=== PATIENT | female | born 1955 | race Caucasian/White ===

== ENCOUNTER 2016-10-18 07:15 | Inpatient (IN) | payer MEDICAID, OTHER ==
--- NOTE | 2016-10-18 07:49 | ED PDOC ---
HPI: General Adult Time Seen by Provider: 10/18/16 07:29 Chief Complaint (Nursing): Palpitations Chief Complaint (Provider): palpitations History Per: Patient History/Exam Limitations: no limitations Additional Complaint(s): 61yo female w/ Hx orthostatic hypotension states that she gets palpitations whenever she urinates or passes bowel movements, ongoing for the past week. Reports hematuria but denies dysuria. States she also feels "off-balance" generally. Also reports an episode of chest pain, which occurred several days ago and was associated palpitations. Also reports mild shortness of breath. Admits to poor appetite and poor diet. PMD: Rosa Elena Carlton Past Medical History Reviewed: Historical Data, Nursing Documentation, Vital Signs Vital Signs: Last Vital Signs Temp 98 F 10/18/16 11:51 Pulse 99 H 10/18/16 11:51 Resp 18 10/18/16 11:51 BP 120/72 10/18/16 11:51 Pulse Ox 100 10/18/16 08:05 - Medical History PMH: Anemia (Pernicious), Asthma, COPD, Diabetes, Deep Vein Thrombosis, Emphysema, Gastrointestinal Ulcer, Hiatal Hernia, Hyperlipidemia, Obstructive Bowel, Pneumonia Denies: Chronic Kidney Disease Other PMH: orthostatic hypotension - Surgical History Surgical History: Endoscopy (with Gastric Esophageal cauterization) - Family History Family History: States: Unknown Family Hx - Home Medications Home Medications: Ambulatory Orders Medication Instructions Recorded No Known Home Med 04/18/16 - Allergies Allergies/Adverse Reactions: Allergies Allergy/AdvReac Type Severity Reaction Status Date / Time aminophylline Allergy SHORTNESS Verified 04/18/16 00:42 OF BREATH aspirin Allergy SHORTNESS Verified 04/18/16 00:42 OF BREATH cephalexin monohydrate Allergy ANAPHYLAXIS Verified 04/18/16 00:37 [From Keflex] cimetidine [From Tagamet] Allergy SHORTNESS Verified 04/18/16 00:42 OF BREATH cimetidine HCl [From Tagamet] Allergy SHORTNESS Verified 04/18/16 00:42 OF BREATH codeine Allergy SHORTNESS Verified 04/18/16 00:42 OF BREATH diazepam [From Valium] Allergy SHORTNESS Verified 04/18/16 00:42 OF BREATH diphenhydramine HCl Allergy SHORTNESS Verified 04/18/16 00:42 [From Benadryl] OF BREATH famotidine [From Pepcid] Allergy SHORTNESS Verified 04/18/16 00:42 OF BREATH ibuprofen Allergy SHORTNESS Verified 04/18/16 00:42 OF BREATH levofloxacin [From Levaquin] Allergy SHORTNESS Verified 04/18/16 00:42 OF BREATH meperidine HCl [From Demerol] Allergy SHORTNESS Verified 04/18/16 00:42 OF BREATH moxifloxacin HCl Allergy SHORTNESS Verified 04/18/16 00:42 [From Avelox] OF BREATH Penicillins Allergy SHORTNESS Verified 04/18/16 00:42 OF BREATH phenobarbital Allergy SHORTNESS Verified 04/18/16 00:42 OF BREATH ranitidine HCl [From Zantac] Allergy SHORTNESS Verified 04/18/16 00:42 OF BREATH shellfish derived Allergy SHORTNESS Verified 04/18/16 01:02 OF BREATH sucralfate [From Carafate] Allergy SHORTNESS Verified 04/18/16 00:42 OF BREATH vancomycin Allergy SHORTNESS Verified 04/18/16 00:42 OF BREATH balloons Allergy SHORTNESS Uncoded 04/18/16 05:21 OF BREATH Estrada Allergy SHORTNESS Uncoded 04/18/16 05:20 OF BREATH Review of Systems ROS Statement: Except As Marked, All Systems Reviewed And Found Negative Cardiovascular: Positive for: Chest Pain, Palpitations Respiratory: Positive for: Shortness of Breath Genitourinary Female: Positive for: Hematuria. Negative for: Dysuria Physical Exam - Reviewed Nursing Documentation Reviewed: Yes Vital Signs Reviewed: Yes - Physical Exam Appears: Positive for: Non-toxic (pale, tired appearing), No Acute Distress Head Exam: Positive for: ATRAUMATIC, NORMAL INSPECTION, NORMOCEPHALIC Skin: Positive for: Warm, Dry Eye Exam: Positive for: EOMI, PERRL Cardiovascular/Chest: Positive for: Regular Rate, Rhythm Respiratory: Positive for: Normal Breath Sounds. Negative for: Rales, Rhonchi, Wheezing Gastrointestinal/Abdominal: Positive for: Normal Exam, Soft. Negative for: Tenderness Extremity: Positive for: Normal ROM Neurologic/Psych: Positive for: Alert, Oriented - Laboratory Results Result Diagrams: 10/18/16 08:20 10/18/16 08:20 - ECG ECG: Positive for: Interpreted By Me, Viewed By Me ECG Rhythm: Positive for: Sinus Rhythm. Negative for: ST/T Changes Rate: 99 O2 Sat by Pulse Oximetry: 100 (RA) Pulse Ox Interpretation: Normal Medical Decision Making Medical Decision Makin Impression: rule out pericardial effusions, kidney stones, UTI Plan: -CT abd/pel -CXR -Labs -banana bag -reassess 1130: Pt. admitted to hospitalist service for further management. ASA not given , pt. allergic. Disposition - Clinical Impression Clinical Impression: Palpitations - Disposition Disposition Time: 11:30 Condition: STABLE Additional Comments - Additional Comments Additional Comments: Scribe Attestation: Documented by Arnaldo Puente acting as a scribe for Enrico Chawla MD. Provider Scribe Attestation: All medical record entries made by the Scribe were at my direction and personally dictated by me. I have reviewed the chart and agree that the record accurately reflects my personal performance of the history, physical exam, medical decision making, and the department course for this patient. I have also personally directed, reviewed, and agree with the discharge instructions and disposition.
[2016-10-18] MEDS ORDERED: Multivitamin (MVI) 10 ML, Folic Acid 1 MG, Thiamine 100 MG in Dextrose 5%/0.45% NS 1,00... IV ONE (08:02)
[2016-10-18 08:35] LABS: BASO # 0.1 K/uL (0.0-0.2); BASO % 0.7 % (0.0-2.0); EOS # 0.2 K/uL (0.0-0.7); HEMATOCRIT 40.7 % (34.0-47.0); LYMPH # 3.2 K/uL (1.0-4.3); LYMPH % 39.1 % (20.0-40.0); MEAN CELL VOLUME 95.1 fl (81.0-99.0); MEAN CORPUSCULAR HGB CONC 33.7 g/dL (33.0-37.0); MEAN PLATELET VOLUME 8.5 fl (7.2-11.7); MONO # 0.6 K/uL (0.0-0.8); MONO % 7.5 % (0.0-10.0); NEUT # 4.2 K/uL (1.8-7.0); NEUT % 50.7 % (50.0-75.0); NRBC % 0.3 % (0.0-0.0); RED CELL DISTRIBUTION WIDTH 13.1 % (11.5-14.5); WHITE BLOOD COUNT 8.3 K/uL (4.8-10.8)
[2016-10-18 08:48] LABS: BLOOD UREA NITROGEN 13 mg/dl (7-17); CALCIUM 7.4 mg/dL (8.4-10.2); CARBON DIOXIDE 23 mmol/L (22-30); CHLORIDE 102 mmol/L (98-107); GFR AFRICAN-AMERICAN > 60; GLUCOSE,RANDOM 123 mg/dL (65-105); POTASSIUM 3.7 MMOL/L (3.6-5.0); SODIUM 136 mmol/l (132-148)
[2016-10-18 09:36] LABS: PARTIAL THROMBOPLASTIN TIME 26.3 SECONDS (23.3-32.5)
--- NOTE | 2016-10-18 09:38 | CT ---
PROCEDURE: CT Abdomen and Pelvis without intravenous contrast HISTORY: hematuria, r/o kidney stone COMPARISON: Comparison is made to the previous study dated 04/18/2016 TECHNIQUE: Axial and reformatted coronal and sagittal CT images of the abdomen and pelvis were obtained without IV or oral contrast administration.. Contrast Dose: 0 Radiation dose: Total exam DLP = 3 a 0.8 mGy-cm. FINDINGS: LOWER THORAX: No evidence of acute pathology LIVER: No significant interval change in the liver since the previous exam. GALLBLADDER AND BILE DUCTS: The gallbladder is not clearly visualized in this exam. The biliary tree is not dilated. PANCREAS: Unremarkable. No gross lesion or ductal dilatation. SPLEEN: Unremarkable. ADRENALS: Mildly enlarged bilateral adrenal glands. KIDNEYS AND URETERS: Mild fullness/ mild hydronephrosis seen bilaterally without evidence of obstructing stone. No evidence of nephrolithiasis. VASCULATURE: Unremarkable. No aortic aneurysm. BOWEL: Moderate to mildly severe constipation more prominent in the rectum. APPENDIX: No evidence of appendicitis. PERITONEUM: Unremarkable. No free fluid. No free air. LYMPH NODES: Unremarkable. No enlarged lymph nodes. BLADDER: Mild to moderate urinary bladder wall thickening. REPRODUCTIVE: The uterus and adnexa are not visualized. BONES: No acute fracture. OTHER FINDINGS: None. IMPRESSION: Re- demonstration of mild to moderate fullness in the collecting system of both kidneys. No evidence of nephrolithiasis or obstructing stone. Moderate to mildly severe constipation more prominent in the rectum. [id number] urinary bladder wall thickening. Otherwise no significant interval change compared to the previous exam.
--- NOTE | 2016-10-18 10:52 | RAD ---
HISTORY: hx of pericardial effusion, cp/sob COMPARISON: 04/18/2016 TECHNIQUE: Chest PA and lateral FINDINGS: LUNGS: No active pulmonary disease. PLEURA: No significant pleural effusion identified. No pneumothorax apparent. CARDIOVASCULAR: Normal. OSSEOUS STRUCTURES: No significant abnormalities. VISUALIZED UPPER ABDOMEN: Normal. OTHER FINDINGS: None. IMPRESSION: No active disease.
[2016-10-18 11:50] LABS: RBC URINE < 1 /hpf (0-3); URINE BILIRUBIN NEGATIVE (NEGATIVE); URINE BLOOD NEGATIVE (NEGATIVE); URINE COLOR STRAW (YELLOW); URINE GLUCOSE (UA) 50 mg/dL (Normal); URINE KETONE NEGATIVE (NEGATIVE); URINE LEUKOCYTE ESTERASE NEG Leu/uL (Negative); URINE PROTEIN NEGATIVE (NEGATIVE); URINE UROBILINOGEN 0.2-1.0 mg/dL (0.2-1.0); WBC URINE < 1 /hpf (0-5)
--- NOTE | 2016-10-18 12:25 | CP.PCM.HP ---
History of Present Illness - History of Present Illness History of Present Illness: CC: chest pain and palpitations HPI: This is a 61 year old female with multiple medical problems for which she is not on any medication, including many food and drug allergies, poor po intake ( states she can only eat peas and bananas at home, cannot take ensure), COPD, DM , DVT, esophageal varices, GI ulcer, hiatal hernia, presents to the emergency room for chest pain and palpitations when she urinates. She had three episodes of moderate chest pain this week, lasting 30 minutes each, pressure like in nature, nonradiating, associated with dyspnea, nausea, no diaphoresis. Patient also states she had an episode of hematuria this morning, however UA shows no blood and is clear. Family would like a cardiology consult. Troponin negative, normal ECG. TSH free T3/T4 pending. Patient was supposed to follow up as an outpatient for elevated TSH last admission however did not. Currently chest pain free, no palpitations. Patient did get tachycardic to 103-110 bpm when patient urinated. Last ECHO 04/2016 6 months ago was negative for any pathology. ROS: per HPI, all other systems reviewed and negative by me PMD: Dr. Carlton PMH: multiple allergies, poor po intake PSH: ovarian cyst, hysterectomy, SBO, LOAx9? endoscopy with gastric esophageal cauterization FH: denies SH: Denies tobacco, ETOH, IVDU MEDS: as below and reviewed ALLERGIES: NKDA EXAM: Temp Pulse Resp BP Pulse Ox 98 F 91 H 18 120/72 100 10/18/16 11:51 10/18/16 13:06 10/18/16 13:06 10/18/16 11:51 10/18/16 12:04 Vitals stable and reviewed GEN: alert, cooperative, thin, appears chronically ill HEENT: NCAT, PERRL, EOMI Neck: supple, no lymphadenopathy CARDIO: +S1S2, RRR, NO M/R/G LUNG: CTAB, NO W/R/R ABD: soft, NT, ND, no masses, no HSM EXT: no edema, pedal pulses Neuro: AAOx3, Strength equal, bilateral UE/LE Psych: normal mood, normal affect LABS as below and reviewed 10/18/16 08:20 10/18/16 08:20 Medications as below EKG normal ECG, NSR. normal rate. no evidence of acute ischemia or infarct ASSESSMENT AND PLAN: 61 year old female with multiple medical problems for which she is not on any medication, including many food and drug allergies, poor po intake (states she can only eat peas and bananas at home, cannot take ensure), COPD, DM, DVT, esophageal varices, GI ulcer, hiatal hernia, presents to the emergency room for chest pain and palpitations when she urinates. She had three episodes of moderate chest pain this week, lasting 30 minutes each, pressure like in nature , nonradiating, associated with dyspnea, nausea, no diaphoresis. Patient also states she had an episode of hematuria this morning, however UA shows no blood and is clear. Family would like a cardiology consult. Troponin negative, normal ECG. TSH free T3/T4 pending. Patient was supposed to follow up as an outpatient for elevated TSH last admission however did not. Currently chest pain free, no palpitations. Patient did get tachycardic to 103-110 bpm when patient urinated. Last ECHO 04/2016 6 months ago was negative for any pathology. Chest pain/Palpitations Patient did get tachycardic while/after urinating, author present 103-110 BPM in ER Patient is currently chest pain free HR controlled normal EKG Cardiology consult appreciated and followed, Dr. Park Ye Cardiac Enzymes, first negative Repeat EKG for chest pain Elevated TSH on last admission Free T3 T4 pending Thyroid dysfunction Elevated TSH last admission will repeat thyroid panel DM accuchecks insulin sliding scale Diabetic diet lovenox DVT ppx Present on Admission - Present on Admission Any Indicators Present on Admission: Yes History of DVT/PE: Yes Past Patient History - Past Medical History & Family History Past Medical History?: Yes - Past Social History Smoking Status: Former Smoker - CARDIAC Hx Cardiac Disorders: Yes - PULMONARY Hx Asthma: Yes Hx Chronic Obstructive Pulmonary Disease (COPD): Yes Hx Emphysema: Yes Hx Pneumonia: Yes - NEUROLOGICAL Hx Neurological Disorder: Yes - HEENT Hx HEENT Problems: No - RENAL Hx Chronic Kidney Disease: No - ENDOCRINE/METABOLIC Hx Endocrine Disorders: Yes (Controlled DM) - HEMATOLOGICAL/ONCOLOGICAL Hx Anemia: Yes (Pernicious) - INTEGUMENTARY Hx Dermatological Problems: Yes - MUSCULOSKELETAL/RHEUMATOLOGICAL Hx Musculoskeletal Disorders: Yes - GASTROINTESTINAL Hx Gastrointestinal Disorders: Yes Hx Fatty Liver Disease: Yes Hx Gastroesophageal Reflux: Yes Other/Comment: GI bleed. Liver mass NOS - GENITOURINARY/GYNECOLOGICAL Hx Genitourinary Disorders: Yes - PSYCHIATRIC Hx Psychophysiologic Disorder: No Hx Substance Use: No - SURGICAL HISTORY Hx Surgeries: Yes Hx Hysterectomy: Yes Other/Comment: Ovarian cysts that ruptured x 2. Lysis of adhesions. Abdominal sx for bowel obstruction x 2 - ANESTHESIA Hx Anesthesia: Yes Hx Anesthesia Reactions: No Hx Malignant Hyperthermia: No Meds Allergies/Adverse Reactions: Allergies Allergy/AdvReac Type Severity Reaction Status Date / Time aminophylline Allergy SHORTNESS Verified 04/18/16 00:42 OF BREATH aspirin Allergy SHORTNESS Verified 04/18/16 00:42 OF BREATH cephalexin monohydrate Allergy ANAPHYLAXIS Verified 04/18/16 00:37 [From Keflex] cimetidine [From Tagamet] Allergy SHORTNESS Verified 04/18/16 00:42 OF BREATH cimetidine HCl [From Tagamet] Allergy SHORTNESS Verified 04/18/16 00:42 OF BREATH codeine Allergy SHORTNESS Verified 04/18/16 00:42 OF BREATH diazepam [From Valium] Allergy SHORTNESS Verified 04/18/16 00:42 OF BREATH diphenhydramine HCl Allergy SHORTNESS Verified 04/18/16 00:42 [From Benadryl] OF BREATH famotidine [From Pepcid] Allergy SHORTNESS Verified 04/18/16 00:42 OF BREATH ibuprofen Allergy SHORTNESS Verified 04/18/16 00:42 OF BREATH levofloxacin [From Levaquin] Allergy SHORTNESS Verified 04/18/16 00:42 OF BREATH meperidine HCl [From Demerol] Allergy SHORTNESS Verified 04/18/16 00:42 OF BREATH moxifloxacin HCl Allergy SHORTNESS Verified 04/18/16 00:42 [From Avelox] OF BREATH Penicillins Allergy SHORTNESS Verified 04/18/16 00:42 OF BREATH phenobarbital Allergy SHORTNESS Verified 04/18/16 00:42 OF BREATH ranitidine HCl [From Zantac] Allergy SHORTNESS Verified 04/18/16 00:42 OF BREATH shellfish derived Allergy SHORTNESS Verified 04/18/16 01:02 OF BREATH sucralfate [From Carafate] Allergy SHORTNESS Verified 04/18/16 00:42 OF BREATH vancomycin Allergy SHORTNESS Verified 04/18/16 00:42 OF BREATH balloons Allergy SHORTNESS Uncoded 04/18/16 05:21 OF BREATH Estrada Allergy SHORTNESS Uncoded 04/18/16 05:20 OF BREATH Results - Vital Signs Recent Vital Signs: Last Vital Signs Temp 98 F 10/18/16 11:51 Pulse 99 H 10/18/16 12:04 Resp 18 10/18/16 11:51 BP 120/72 10/18/16 11:51 Pulse Ox 100 10/18/16 12:04 - Labs Result Diagrams: 10/18/16 08:20 10/18/16 08:20
[2016-10-18 15:06] VITALS: BMI 20.7
--- NOTE | 2016-10-18 15:53 | CP.PCM.CON ---
History of Present Illness - History of Present Illness History of Present Illness: This is a 61 year old female with multiple medical problems for which she is not on any medication COPD, DM, DVT, esophageal varices, GI ulcer, hiatal hernia, presents to the emergency room for chest pain and palpitations when she urinates. She had three episodes of moderate chest pain this week, lasting 30 minutes each , pressure like in nature, non radiating, associated with dyspnea, nausea, no diaphoresis. . Patient was supposed to follow up as an outpatient for elevated TSH last admission however did not. Currently chest pain free, no palpitations. she describes her chest pain as being retrosternal/like a knot unrelated to exertion or movement claims she has problems with her esophagus which frequently gives her a feeling like this Troponin: neg x 3 EKG: normal 04/18/16 Echo: Normal w/ good LV function PSH: ovarian cyst, hysterectomy, SBO, LOAx9? endoscopy with gastric esophageal cauterization Past Patient History - Past Medical History & Family History Past Medical History?: Yes - Past Social History Smoking Status: Former Smoker - CARDIAC Hx Cardiac Disorders: Yes - PULMONARY Hx Asthma: Yes Hx Chronic Obstructive Pulmonary Disease (COPD): Yes Hx Emphysema: Yes Hx Pneumonia: Yes - NEUROLOGICAL Hx Neurological Disorder: Yes - HEENT Hx HEENT Problems: No - RENAL Hx Chronic Kidney Disease: No - ENDOCRINE/METABOLIC Hx Endocrine Disorders: Yes (Controlled DM) - HEMATOLOGICAL/ONCOLOGICAL Hx Anemia: Yes (Pernicious) - INTEGUMENTARY Hx Dermatological Problems: Yes - MUSCULOSKELETAL/RHEUMATOLOGICAL Hx Musculoskeletal Disorders: Yes - GASTROINTESTINAL Hx Gastrointestinal Disorders: Yes Hx Fatty Liver Disease: Yes Hx Gastroesophageal Reflux: Yes Other/Comment: GI bleed. Liver mass NOS - GENITOURINARY/GYNECOLOGICAL Hx Genitourinary Disorders: Yes - PSYCHIATRIC Hx Psychophysiologic Disorder: No Hx Substance Use: No - SURGICAL HISTORY Hx Surgeries: Yes Hx Hysterectomy: Yes Other/Comment: Ovarian cysts that ruptured x 2. Lysis of adhesions. Abdominal sx for bowel obstruction x 2 - ANESTHESIA Hx Anesthesia: Yes Hx Anesthesia Reactions: No Hx Malignant Hyperthermia: No Meds Allergies/Adverse Reactions: Allergies Allergy/AdvReac Type Severity Reaction Status Date / Time aminophylline Allergy SHORTNESS Verified 04/18/16 00:42 OF BREATH aspirin Allergy SHORTNESS Verified 04/18/16 00:42 OF BREATH cephalexin monohydrate Allergy ANAPHYLAXIS Verified 04/18/16 00:37 [From Keflex] cimetidine [From Tagamet] Allergy SHORTNESS Verified 04/18/16 00:42 OF BREATH cimetidine HCl [From Tagamet] Allergy SHORTNESS Verified 04/18/16 00:42 OF BREATH codeine Allergy SHORTNESS Verified 04/18/16 00:42 OF BREATH diazepam [From Valium] Allergy SHORTNESS Verified 04/18/16 00:42 OF BREATH diphenhydramine HCl Allergy SHORTNESS Verified 04/18/16 00:42 [From Benadryl] OF BREATH famotidine [From Pepcid] Allergy SHORTNESS Verified 04/18/16 00:42 OF BREATH ibuprofen Allergy SHORTNESS Verified 04/18/16 00:42 OF BREATH levofloxacin [From Levaquin] Allergy SHORTNESS Verified 04/18/16 00:42 OF BREATH meperidine HCl [From Demerol] Allergy SHORTNESS Verified 04/18/16 00:42 OF BREATH moxifloxacin HCl Allergy SHORTNESS Verified 04/18/16 00:42 [From Avelox] OF BREATH Penicillins Allergy SHORTNESS Verified 04/18/16 00:42 OF BREATH phenobarbital Allergy SHORTNESS Verified 04/18/16 00:42 OF BREATH ranitidine HCl [From Zantac] Allergy SHORTNESS Verified 04/18/16 00:42 OF BREATH shellfish derived Allergy SHORTNESS Verified 04/18/16 01:02 OF BREATH sucralfate [From Carafate] Allergy SHORTNESS Verified 04/18/16 00:42 OF BREATH vancomycin Allergy SHORTNESS Verified 04/18/16 00:42 OF BREATH balloons Allergy SHORTNESS Uncoded 04/18/16 05:21 OF BREATH Estrada Allergy SHORTNESS Uncoded 04/18/16 05:20 OF BREATH - Medications Medications: Current Medications Enoxaparin Sodium (Lovenox) 40 mg SC DAILY [facility] Reason: Protocol Insulin Human Lispro (Humalog) 0 units SC ACHS [facility] Reason: Protocol Results - Vital Signs Recent Vital Signs: Last Vital Signs Temp 98 F 10/18/16 11:51 Pulse 91 H 10/18/16 13:06 Resp 18 10/18/16 13:06 BP 120/72 10/18/16 11:51 Pulse Ox 100 10/18/16 12:04 - Labs Result Diagrams: 10/19/16 05:50 10/19/16 05:50 Assessment & Plan (1) Palpitations Assessment and Plan: Pt is in normal sinus rhythm at a normal rate the chest pains appear to be non cardiac in origin suggest Stress Test as an out patient Status: Acute
[2016-10-18] MEDS: Enoxaparin 40 mg Syringe SC SCH (16:52)
[2016-10-18] MEDS: Insulin Lispro (humaLOG) 100 Units/ml Inj SC SCH ×2 (16:56→22:00)
[2016-10-19 06:42] LABS: HEMATOCRIT 38.5 % (34.0-47.0); MEAN CELL VOLUME 95.6 fl (81.0-99.0); MEAN CORPUSCULAR HEMOGLOBIN 32.2 pg (27.0-31.0); MEAN CORPUSCULAR HGB CONC 33.7 g/dL (33.0-37.0); RED CELL DISTRIBUTION WIDTH 13.2 % (11.5-14.5); WHITE BLOOD COUNT 6.1 K/uL (4.8-10.8)
[2016-10-19 06:43] LABS: BLOOD UREA NITROGEN 7 mg/dl (7-17); CALCIUM 7.4 mg/dL (8.4-10.2); CARBON DIOXIDE 27 mmol/L (22-30); CHLORIDE 106 mmol/L (98-107); GFR AFRICAN-AMERICAN > 60; GLUCOSE,RANDOM 100 mg/dL (65-105); POTASSIUM 4.3 MMOL/L (3.6-5.0); SODIUM 144 mmol/l (132-148)
[2016-10-19] MEDS: Insulin Lispro (humaLOG) 100 Units/ml Inj SC SCH ×4 (06:47→22:32)
[2016-10-19] MEDS: Levothyroxine 25 MCG TAB PO STA ×2 (09:39→10:34)
[2016-10-19] MEDS: Enoxaparin 40 mg Syringe SC SCH (09:44)
[2016-10-19] MEDS ORDERED: Multivitamin (MVI) 10 ML, Thiamine 100 MG, Folic Acid 1 MG in Sodium Chloride 0.9% 1,00... IV ONE (11:56)
[2016-10-19 12:23] LABS: FT3 4.12 pg/mL (2.77-5.27)
--- NOTE | 2016-10-19 14:14 | CP.PCM.PN ---
Subjective - Date & Time of Evaluation Date of Evaluation: 10/19/16 Time of Evaluation: 09:00 - Subjective Subjective: No fever complains of generalized weakness - states has been feeling very weak for the past 6 months - being followed up by Dr Carlton's insulator cutter and former at home states that she gets episodes of chest pains and palpitations allergic to many medications and so does not want to take any meds also allergic to a lot of food and eats mostly bananas and peas at home no abd pain denies constipation however CT of abd showed mod amt of stools Objective - Vital Signs/Intake and Output Vital Signs (last 24 hours): Temp Pulse Resp BP Pulse Ox 97.8 F 79 20 102/65 98 10/19/16 12:30 10/19/16 12:30 10/19/16 12:30 10/19/16 12:30 10/19/16 12:30 - Medications Medications: Current Medications Docusate Sodium (Colace) 100 mg PO BID [facility] Enoxaparin Sodium (Lovenox) 40 mg SC DAILY [facility] PRN Reason: Protocol Last Admin: 10/19/16 09:44 Dose: 40 mg Multivitamins/Vitamin C 10 ml/Thiamine HCl 100 mg/ Folic Acid 1 mg/ Sodium Chloride 1,011.2 mls @ 100 mls/hr IV .Q10H7M ONE Stop: 10/19/16 22:02 Last Admin: 10/19/16 13:22 Dose: 100 mls/hr Insulin Human Lispro (Humalog) 0 units SC ACHS [facility] PRN Reason: Protocol Last Admin: 10/19/16 13:19 Dose: Not Given Levothyroxine Sodium (Synthroid) 25 mcg PO DAILY@0630 [facility] - Labs Labs: 10/19/16 05:50 10/19/16 05:50 PT 10.0 SECONDS (9.6-11.2) 10/18/16 08:20 INR 0.96 (0.92-1.08) 10/18/16 08:20 APTT 26.3 SECONDS (23.3-32.5) 10/18/16 08:20 - Constitutional Appears: Non-toxic, No Acute Distress - Head Exam Head Exam: ATRAUMATIC, NORMAL INSPECTION, NORMOCEPHALIC - Eye Exam Eye Exam: EOMI, Normal appearance, PERRL Pupil Exam: NORMAL ACCOMODATION Additional comments: edentulous - ENT Exam ENT Exam: Mucous Membranes Moist, Normal External Ear Exam - Neck Exam Neck Exam: Full ROM. absent: Meningismus - Respiratory Exam Respiratory Exam: NORMAL BREATHING PATTERN. absent: Wheezes, Respiratory Distress - Cardiovascular Exam Cardiovascular Exam: REGULAR RHYTHM, +S1, +S2 - GI/Abdominal Exam GI & Abdominal Exam: Soft, Normal Bowel Sounds. absent: Tenderness - Extremities Exam Extremities Exam: Full ROM, Normal Capillary Refill, Normal Inspection. absent : Calf Tenderness, Pedal Edema - Back Exam Back Exam: Full ROM, NORMAL INSPECTION. absent: CVA tenderness (L), CVA tenderness (R), paraspinal tenderness, vertebral tenderness - Neurological Exam Neurological Exam: Alert, Awake, CN II-XII Intact, Normal Gait, Oriented x3 Additional comments: 4-5/5 on all extremities - Psychiatric Exam Psychiatric exam: Normal Affect, Normal Mood - Skin Skin Exam: Dry, Intact, Normal Color, Warm Assessment and Plan - Assessment and Plan (Free Text) Plan: 61 year old female with vague multiple medical problems for which she is not on any medication, including many food and drug allergies, poor po intake ( states she can only eat peas and bananas at home, cannot take ensure), unclear if she has really Hx of COPD, DM, DVT, esophageal varices, GI ulcer, hiatal hernia, presents to the emergency room for chest pain and palpitations when she urinates. She had three episodes of moderate chest pain this week, lasting 30 minutes each, pressure like in nature, nonradiating, associated with dyspnea, nausea, no diaphoresis. Patient also states she had an episode of hematuria this morning, however UA shows no blood and is clear. Cardiology consulted. Troponin negative x 3, normal ECG. TSH sl elevated with low T4 however pt refuses to take Levothyroxine . Patient was supposed to follow up as an outpatient for elevated TSH last admission however did not and also [facility] not [facility] . Currently chest pain free, no palpitations. Last ECHO 04/2016 6 months ago was negative for any pathology. Chest pain/Palpitations atypical , unclear etiology prob related to her hx of GERD ACS ruled out Patient is currently chest pain free HR controlled normal EKG Cardiology consulted Dr. Nick- rec outpt Stress Test Troponin x 3 negative Hypothyroidism Elevated TSH , low free T4 start low dose Levothyroxine- pt refusing to take Generalized weakness, unclear etiology - Neuro exam : no focal deficit -CT of head - RPR, B12 - Physical therapy consult - [facility] app[facility] as outpt Doubt DM type II accuchecks normal hgba1c = 5.7 on previous visit insulin sliding scale Diabetic diet DVT ppx - lovenox
--- NOTE | 2016-10-19 15:16 | CT ---
PROCEDURE: CT HEAD WITHOUT CONTRAST. HISTORY: generalized weakness, dizziness COMPARISON: None available. TECHNIQUE: Axial computed tomography images were obtained through the head/brain without intravenous contrast. Radiation dose: Total exam DLP = 818.52 mGy-cm. FINDINGS: HEMORRHAGE: No intracranial hemorrhage. BRAIN: No mass effect or edema. The interiano-white matter differentiation appears intact. Please note that MRI with diffusion imaging is more sensitive in the detection of acute ischemic event. VENTRICLES: No hydrocephalus. CALVARIUM: Unremarkable. PARANASAL SINUSES: Unremarkable as visualized. No significant inflammatory changes. MASTOID AIR CELLS: Unremarkable as visualized. No inflammatory changes. OTHER FINDINGS: None. IMPRESSION: No acute intracranial pathology identified.
[2016-10-20] MEDS: Levothyroxine 25 MCG TAB PO SCH (06:38)
[2016-10-20] MEDS: Insulin Lispro (humaLOG) 100 Units/ml Inj SC SCH ×3 (08:00→21:35)
[2016-10-20] MEDS: Enoxaparin 40 mg Syringe SC SCH (09:27)
--- NOTE | 2016-10-20 12:34 | CP.PCM.CON ---
History of Present Illness - History of Present Illness History of Present Illness: Psychiatry consult called for evaluation of depression CC: "Of course I'm upset with all of these medical problems." HPI: 61 year old female with multiple medical problems for which she is not on any medication, including many food and drug allergies, poor po intake (states she can only eat peas and bananas at home, cannot take ensure), COPD, DM, DVT, esophageal varices, GI ulcer, hiatal hernia, presented to the emergency room for chest pain and palpitations when she urinates. Patient reports that she feels very upset about the amount of medical problems she has. She was defensive on interview, didn't want to be labeled as "crazy" and stated that she does not to be stigmatized or her medical issues ignored because she also has psychiatric issues. She reported feeling stressed, but denied excessive feelings of depression. Her main complaint was anxiety, intermittent panic attacks and agoraphobia. She reports that she is afraid to leave the house because of the amount of things she is allergic too and exposure to various toxins. She left her house last 6 months ago to go to the hospital and before that, she didn't leave for 10 year, due to various preoccupations. [employer] Manager informed the patient that she would benefit from inpatient admission, psychiatric medications and therapy, but patient stated that she is not willing at this time. She is very concerned about taking any medications and refuses to take any medications offered by the story writer. She denies AH/VH/SI/HI. She is taken care of by her son, who was in the room and confirmed her history. ROS: per HPI PMD: Dr. Carlton PPHx: H/o one previous psychiatric admission >20 years ago for depression, no h/ o suicide attempts, no current outpatient tx or psychiatric medications PMH: many food and drug allergies, poor po intake (states she can only eat peas and bananas at home, cannot take ensure), COPD, DM, DVT, esophageal varices, GI ulcer, hiatal hernia PSH: ovarian cyst, hysterectomy, SBO, LOAx9? endoscopy with gastric esophageal cauterization FH: Borderline personality disorder and unspecified somatic disorder- Mother SH: Denies tobacco, ETOH, IVDU; Lives with son, has 2 children and is estranged from her daughter MEDS: as below and reviewed ALLERGIES: NKDA MSE: Alert + Oriented x 3, cachetic, good eye contact, cooperative with interview, mood "anxious" affect- full range/broad, thought content- linear/ coherent, though process- somatic preoccupation, NO paranoia/delusions/ hallucinations. NO SI/HI. Insight/judgment- poor Impression: 61 year old female with multiple medical problems for which she is not on any medication, including many food and drug allergies, poor po intake ( states she can only eat peas and bananas at home, cannot take ensure), COPD, DM , DVT, esophageal varices, GI ulcer, hiatal hernia, presented to the emergency room for chest pain and palpitations when she urinates. Patient presents with various complaints of anxiety, inability to leave her home, various preoccupations about her health including various allergies, and somatic preoccupation. Patient does not meet criteria for Major Depressive Disorder. 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 Recommendations: -Patient not agreeable to voluntary psychiatric admission and does not meet criteria for involuntary commitment -Patient is currently refusing, but if she agreed, would recommend to start the patient on an antidepressant (such as Zoloft 50 mg PO Daily) and an anti- anxiolytic (such Clonazepam 0.5 mg PO Q12 HR PRN anxiety) -Would recommend for to arrange Visiting Nurse Services for in home services as the patient refuses to leave house for treatment -She would benefit from fpc psychotherapy and CBT as an outpatient if she would leave her home or could obtained these services at home Past Patient History - Past Medical History & Family History Past Medical History?: Yes - Past Social History Smoking Status: Former Smoker - CARDIAC Hx Cardiac Disorders: Yes - PULMONARY Hx Asthma: Yes Hx Chronic Obstructive Pulmonary Disease (COPD): Yes Hx Emphysema: Yes Hx Pneumonia: Yes - NEUROLOGICAL Hx Neurological Disorder: Yes - HEENT Hx HEENT Problems: No - RENAL Hx Chronic Kidney Disease: No - ENDOCRINE/METABOLIC Hx Endocrine Disorders: Yes (Controlled DM) - HEMATOLOGICAL/ONCOLOGICAL Hx Anemia: Yes (Pernicious) - INTEGUMENTARY Hx Dermatological Problems: Yes - MUSCULOSKELETAL/RHEUMATOLOGICAL Hx Musculoskeletal Disorders: Yes - GASTROINTESTINAL Hx Gastrointestinal Disorders: Yes Hx Fatty Liver Disease: Yes Hx Gastroesophageal Reflux: Yes Other/Comment: GI bleed. Liver mass NOS - GENITOURINARY/GYNECOLOGICAL Hx Genitourinary Disorders: Yes - PSYCHIATRIC Hx Psychophysiologic Disorder: No Hx Substance Use: No - SURGICAL HISTORY Hx Surgeries: Yes Hx Hysterectomy: Yes Other/Comment: Ovarian cysts that ruptured x 2. Lysis of adhesions. Abdominal sx for bowel obstruction x 2 - ANESTHESIA Hx Anesthesia: Yes Hx Anesthesia Reactions: No Hx Malignant Hyperthermia: No Meds Allergies/Adverse Reactions: Allergies Allergy/AdvReac Type Severity Reaction Status Date / Time aminophylline Allergy SHORTNESS Verified 04/18/16 00:42 OF BREATH aspirin Allergy SHORTNESS Verified 04/18/16 00:42 OF BREATH cephalexin monohydrate Allergy ANAPHYLAXIS Verified 04/18/16 00:37 [From Keflex] cimetidine [From Tagamet] Allergy SHORTNESS Verified 04/18/16 00:42 OF BREATH cimetidine HCl [From Tagamet] Allergy SHORTNESS Verified 04/18/16 00:42 OF BREATH codeine Allergy SHORTNESS Verified 04/18/16 00:42 OF BREATH diazepam [From Valium] Allergy SHORTNESS Verified 04/18/16 00:42 OF BREATH diphenhydramine HCl Allergy SHORTNESS Verified 04/18/16 00:42 [From Benadryl] OF BREATH famotidine [From Pepcid] Allergy SHORTNESS Verified 04/18/16 00:42 OF BREATH ibuprofen Allergy SHORTNESS Verified 04/18/16 00:42 OF BREATH levofloxacin [From Levaquin] Allergy SHORTNESS Verified 04/18/16 00:42 OF BREATH meperidine HCl [From Demerol] Allergy SHORTNESS Verified 04/18/16 00:42 OF BREATH moxifloxacin HCl Allergy SHORTNESS Verified 04/18/16 00:42 [From Avelox] OF BREATH Penicillins Allergy SHORTNESS Verified 04/18/16 00:42 OF BREATH phenobarbital Allergy SHORTNESS Verified 04/18/16 00:42 OF BREATH ranitidine HCl [From Zantac] Allergy SHORTNESS Verified 04/18/16 00:42 OF BREATH shellfish derived Allergy SHORTNESS Verified 04/18/16 01:02 OF BREATH sucralfate [From Carafate] Allergy SHORTNESS Verified 04/18/16 00:42 OF BREATH vancomycin Allergy SHORTNESS Verified 04/18/16 00:42 OF BREATH balloons Allergy SHORTNESS Uncoded 04/18/16 05:21 OF BREATH Estrada Allergy SHORTNESS Uncoded 04/18/16 05:20 OF BREATH - Medications Medications: Current Medications Cyanocobalamin (Vitamin B12 1000 Mcg/Ml Inj) 1,000 mcg IM DAILY COUNT INCLUDES THE [facility] Docusate Sodium (Colace) 100 mg PO BID COUNT INCLUDES THE [facility] Last Admin: 10/20/16 09:27 Dose: Not Given Enoxaparin Sodium (Lovenox) 40 mg SC DAILY COUNT INCLUDES THE [facility] PRN Reason: Protocol Last Admin: 10/20/16 09:27 Dose: Not Given Insulin Human Lispro (Humalog) 0 units SC ACHS COUNT INCLUDES THE [facility] PRN Reason: Protocol Last Admin: 10/19/16 22:32 Dose: Not Given Levothyroxine Sodium (Synthroid) 25 mcg PO DAILY@0630 COUNT INCLUDES THE [facility] Last Admin: 10/20/16 06:38 Dose: Not Given Results - Vital Signs Recent Vital Signs: Last Vital Signs Temp 98.1 F 10/20/16 11:53 Pulse 77 10/20/16 11:53 Resp 20 10/20/16 11:53 BP 105/66 10/20/16 11:53 Pulse Ox 99 10/20/16 11:53 - Labs Result Diagrams: 10/19/16 05:50 10/19/16 05:50 Labs: Laboratory Results - last 24 hr 10/19/16 10/19/16 10/19/16 14:30 15:15 16:49 POC Glucose (mg/dL) 105 Vitamin B12 < 159 L RPR Nonreactive 10/19/16 10/20/16 21:41 05:31 POC Glucose (mg/dL) 127 H 100 Vitamin B12 RPR Assessment & Plan - Assessment and Plan (Free Text) Assessment: Patient evaluated, collateral obtained from the patient's son, chart reviewed, 55 min
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
[2016-10-20 16:19] VITALS: RESP 18
--- NOTE | 2016-10-20 19:02 | CARD ---
APPROVED REPORT EKG Measurement Heart [id number] <Conclusion> Normal sinus rhythm Normal ECG
[2016-10-21] MEDS: Levothyroxine 25 MCG TAB PO SCH ×2 (06:32→06:38)
[2016-10-21] MEDS: Insulin Lispro (humaLOG) 100 Units/ml Inj SC SCH ×3 (07:44→16:53)
[2016-10-21] MEDS: Enoxaparin 40 mg Syringe SC SCH (09:09)
--- NOTE | 2016-10-21 09:32 | CP.PCM.DIS ---
Provider - Provider Date of Admission: 10/19/16 14:12 Attending physician: Lara Watters DO Primary care physician: Dr. Carlton Time Spent in preparation of Discharge (in minutes): 20 Hospital Course - Lab Results Lab Results: Most Recent Lab Values WBC 6.1 K/uL (4.8-10.8) 10/19/16 05:50 RBC 4.03 Mil/uL (3.80-5.20) 10/19/16 05:50 Hgb 13.0 g/dL (12.0-16.0) 10/19/16 05:50 Hct 38.5 % (34.0-47.0) 10/19/16 05:50 MCV 95.6 fl (81.0-99.0) 10/19/16 05:50 MCH 32.2 pg (27.0-31.0) H 10/19/16 05:50 MCHC 33.7 g/dL (33.0-37.0) 10/19/16 05:50 RDW 13.2 % (11.5-14.5) 10/19/16 05:50 Plt Count 276 K/uL (130-400) 10/19/16 05:50 MPV 8.5 fl (7.2-11.7) 10/18/16 08:20 Neut % (Auto) 50.7 % (50.0-75.0) 10/18/16 08:20 Lymph % (Auto) 39.1 % (20.0-40.0) 10/18/16 08:20 [place] % (Auto) 7.5 % (0.0-10.0) 10/18/16 08:20 Eos % (Auto) 2.0 % (0.0-4.0) 10/18/16 08:20 Baso % (Auto) 0.7 % (0.0-2.0) 10/18/16 08:20 Neut # 4.2 K/uL (1.8-7.0) 10/18/16 08:20 Lymph # 3.2 K/uL (1.0-4.3) 10/18/16 08:20 [place] # 0.6 K/uL (0.0-0.8) 10/18/16 08:20 Eos # 0.2 K/uL (0.0-0.7) 10/18/16 08:20 Baso # 0.1 K/uL (0.0-0.2) 10/18/16 08:20 PT 10.0 SECONDS (9.6-11.2) 10/18/16 08:20 INR 0.96 (0.92-1.08) 10/18/16 08:20 APTT 26.3 SECONDS (23.3-32.5) 10/18/16 08:20 D-Dimer, Quantitative 0.43 mg/L FEU (0-0.50) 10/18/16 08:20 Sodium 144 mmol/l (132-148) 10/19/16 05:50 Potassium 4.3 MMOL/L (3.6-5.0) 10/19/16 05:50 Chloride 106 mmol/L (98-107) 10/19/16 05:50 Carbon Dioxide 27 mmol/L (22-30) 10/19/16 05:50 Anion Gap 15 (10-20) 10/19/16 05:50 BUN 7 mg/dl (7-17) 10/19/16 05:50 Creatinine 0.4 mg/dL (0.7-1.2) L 10/19/16 05:50 Est GFR ( Amer) > 60 10/19/16 05:50 Est GFR (Non-Af Amer) > 60 10/19/16 05:50 POC Glucose (mg/dL) 94 mg/dL (65-110) 10/21/16 05:39 Random Glucose 100 mg/dL (65-105) 10/19/16 05:50 Calcium 7.4 mg/dL (8.4-10.2) L 10/19/16 05:50 Troponin I < 0.0120 ng/mL (0.00-0.120) 10/18/16 23:14 NT-Pro-B Natriuret Pep 82.0 pg/ml (0-900) 10/18/16 08:20 Vitamin B12 < 159 pg/mL (239-931) L 10/19/16 15:15 Free T4 0.77 ng/dL (0.78-2.19) L 10/18/16 16:30 TSH 3rd Generation 6.50 mIU/ML (0.46-4.68) H 10/18/16 16:30 Urine Color Straw (YELLOW) 10/18/16 11:23 Urine Clarity Clear (Clear) 10/18/16 11:23 Urine pH 7.0 (5.0-8.0) 10/18/16 11:23 Ur Specific Nichols < 1.005 (1.003-1.030) 10/18/16 11:23 Urine Protein Negative mg/dL (NEGATIVE) 10/18/16 11:23 Urine Glucose (UA) 50 mg/dL (Normal) 10/18/16 11:23 Urine Ketones Negative mg/dL (NEGATIVE) 10/18/16 11:23 Urine Blood Negative (NEGATIVE) 10/18/16 11:23 Urine Nitrate Negative (NEGATIVE) 10/18/16 11:23 Urine Bilirubin Negative (NEGATIVE) 10/18/16 11:23 Urine Urobilinogen 0.2-1.0 mg/dL (0.2-1.0) 10/18/16 11:23 Ur Leukocyte Esterase Neg Xenia/uL (Negative) 10/18/16 11:23 Urine RBC (Auto) < 1 /hpf (0-3) 10/18/16 11:23 Urine Microscopic WBC < 1 /hpf (0-5) 10/18/16 11:23 RPR Nonreactive (NONREACTIVE) 10/19/16 14:30 - Hospital Course Hospital Course: This is a 61 year old female with multiple medical problems for which she is not on any medication, including many food and drug allergies, poor po intake ( states she can only eat peas and bananas at home, cannot take ensure), COPD, DM , DVT, esophageal varices, GI ulcer, hiatal hernia, presented to the emergency room for chest pain and palpitations when she urinates. She had three episodes of moderate chest pain this week, lasting 30 minutes each, pressure like in nature, non radiating, associated with dyspnea, nausea, no diaphoresis. Patient also stated she had an episode of hematuria this morning, however UA shows no blood and is clear. Patient was placed under observation in telemetry for chest pain to rule out ACS and cardiology wsa consulted Tele monitor showed no arrhythmias and Troponins were x 3 negative, normal EKG .Last ECHO 04/2016 6 months ago was negative for any pathology. patient at present chest pain free. ACS ruled out and as per account processor she may benefit from stress test as out patient. During this admission patient found to have Vitamin b12 deficiency and hypothyroidism and started on Vitamin b12 injection and Synthroid Po. patiemnt reluctant to take medications due to fear of having allergic reactions. Psych eval called for evaluation since patient and son gave history of agoraphobia and high levels of anxiety but patient refused treatment or voluntary psych admission. patient referred to [facility] for her generalized weakness.will d/c today to [facility] ( [place] 0 Patient counselled at length on compliance with treatment for her hypothyroidism , Vitamin b12 deficiency.Recommended outpatient stress test and GiI eval for hiatal hernia Patient to follow up with Her PMD Dr. Carlton 1.Chest Pain/Palpitations-- ACS ruled out she will need outpatient Stress Test a Also explained to patient and son that GI evaluation as an outpatient was also recommended considering her revealing that she has a hiatal hernia and to rule out any esophageal etiology 2.Hypothyroidism newly diagnosed started levothyroxine 3. Vitamin B12 deficiency Started Vitamin B12 injections 4. Anxiety and Agoraphobia Psych consulted and recommended Zoloft 50 mg po daily , Klonopine 0.5 mg po bid PRN and CBT treatment All was explained to patient and son 5. Generalized Weakness possibly related to hypothyroidism and vitamin B12 deficiency D/c to [facility] for physical therapy and to continue treatment for hypothyroidism and Vitamin b12 deficiency 6.Hiatal hernia GI eval as outpatients Discharge Exam - Head Exam Head Exam: ATRAUMATIC, NORMAL INSPECTION, NORMOCEPHALIC - Eye Exam Eye Exam: EOMI, Normal appearance, PERRL Pupil Exam: NORMAL ACCOMODATION - ENT Exam ENT Exam: Mucous Membranes Moist, Normal Exam - Neck Exam Neck exam: Full Rom, Normal Inspection - Respiratory Exam Respiratory Exam: Clear to PA & Lateral, NORMAL BREATHING PATTERN. absent: Rales, Rhonchi, Wheezes - Cardiovascular Exam Cardiovascular Exam: REGULAR RHYTHM, RRR, +S1, +S2. absent: JVD - GI/Abdominal Exam GI & Abdominal Exam: Normal Bowel Sounds, Soft. absent: Distended, Guarding, Rebound, Tenderness - Rectal Exam Rectal Exam: Deferred - Extremities Exam Extremities exam: normal capillary refill, normal inspection, pedal pulses present - Back Exam Back exam: NORMAL INSPECTION - Neurological Exam Neurological exam: Alert, CN II-XII Intact, Oriented x3, Reflexes Normal - Psychiatric Exam Psychiatric exam: Anxious - Skin Skin Exam: Dry, Intact, Normal Color, Warm Discharge Plan - Discharge Medications Prescriptions: clonazePAM [clonAZEPAM] 0.5 mg PO BID PRN #30 tab PRN Reason: Anxiety Sertraline [Zoloft] 50 mg PO DAILY #30 tab - Follow Up Plan Condition: STABLE Disposition: TRANSF TO SNF Patient education suggested?: Yes Referrals: Rosa Elena Carlton MD [Family Provider] -
[2016-10-21 20:19] VITALS: BP 111/69; PULSE 72; TEMP 98.5; O2SAT 100
== END 2016-10-21 20:30 | DRG 182 ==
LOC: H.ER 07:15 → H.ERHOLD 11:30 → H.TEL 12:24 → OBSVTOIN 10-19 14:12
PROVIDERS: ADMIT Student in an Organized Health Care Education/Training Program; ATTEND Student in an Organized Health Care Education/Training Program
DX: K21.9 Gastro-esophageal reflux disease without esophagitis (principal); J43.9 Emphysema, unspecified; E53.8 Deficiency of other specified B group vitamins; R00.2 Palpitations; E03.9 Hypothyroidism, unspecified; F41.9 Anxiety disorder, unspecified; F40.00 Agoraphobia, unspecified; K44.9 Diaphragmatic hernia without obstruction or gangrene; J45.909 Unspecified asthma, uncomplicated; E11.9 Type 2 diabetes mellitus without complications; Z86.718 Personal history of other venous thrombosis and embolism; F40.01 Agoraphobia with panic disorder; F45.9 Somatoform disorder, unspecified; Z87.891 Personal history of nicotine dependence

== ENCOUNTER 2016-12-06 13:19 | Inpatient (IN) | payer MEDICAID, OTHER ==
[2016-12-06 13:19] VITALS: BMI 20.7
[2016-12-06 14:03] LABS: BASO % 0.5 % (0.0-2.0); EOS # 0.1 K/uL (0.0-0.7); EOS % 1.8 % (0.0-4.0); HEMATOCRIT 40.5 % (34.0-47.0); LYMPH # 2.2 K/uL (1.0-4.3); LYMPH % 30.2 % (20.0-40.0); MEAN CELL VOLUME 95.5 fl (81.0-99.0); MEAN CORPUSCULAR HEMOGLOBIN 32.2 pg (27.0-31.0); MEAN CORPUSCULAR HGB CONC 33.7 g/dL (33.0-37.0); MEAN PLATELET VOLUME 7.9 fl (7.2-11.7); MONO # 0.5 K/uL (0.0-0.8); MONO % 6.7 % (0.0-10.0); NEUT # 4.4 K/uL (1.8-7.0); NEUT % 60.8 % (50.0-75.0); RED CELL DISTRIBUTION WIDTH 13.6 % (11.5-14.5); WHITE BLOOD COUNT 7.2 K/uL (4.8-10.8)
--- NOTE | 2016-12-06 14:15 | ED PDOC ---
HPI: General Adult Time Seen by Provider: 12/06/16 13:32 Chief Complaint (Nursing): Psychiatric Evaluation Chief Complaint (Provider): crisis evaluation History Per: Other (PMD phone call, prison report) History/Exam Limitations: clinical condition Additional Complaint(s): 61yo female sent from rehab facility for psychiatric evaluation after refusing to eat or drink due to fear of food allergies. Outpatient PMD called our crisis department to warn of arrival. Patient is a poor historian, states she doesn't eat due to it triggering her asthma, complains of feeling weak, dizzy, admitting weight loss. Past Medical History Reviewed: Historical Data, Nursing Documentation, Vital Signs, Unable To Obtain (limited due to current condition) Vital Signs: Last Vital Signs Temp 98.3 F 12/06/16 13:26 Pulse 79 12/06/16 16:00 Resp 16 12/06/16 16:00 BP 132/75 12/06/16 16:00 Pulse Ox 99 12/06/16 19:12 - Medical History PMH: Anemia (Pernicious), Asthma, COPD, Diabetes, Deep Vein Thrombosis, Emphysema, Gastrointestinal Ulcer, Hiatal Hernia, Hyperlipidemia, Obstructive Bowel, Pneumonia Denies: HIV, Chronic Kidney Disease Other PMH: endometriosis - Surgical History Surgical History: Endoscopy (with Gastric Esophageal cauterization) Other surgeries: multiple abdominal surgeries - Family History Family History: States: Unknown Family Hx - Home Medications Home Medications: Ambulatory Orders Medication Instructions Recorded Docusate [Colace] 100 mg PO BID cap 10/21/16 Acetaminophen [Tylenol 325mg tab] 650 mg PO Q4H PRN 12/06/16 Acetaminophen [Tylenol 325mg tab] 650 mg PO Q4H PRN 12/06/16 Insulin Glulisine [Apidra] 1 - 7 unit SC BID 12/06/16 - Allergies Allergies/Adverse Reactions: Allergies Allergy/AdvReac Type Severity Reaction Status Date / Time aminophylline Allergy SHORTNESS Verified 04/18/16 00:42 OF BREATH aspirin Allergy SHORTNESS Verified 04/18/16 00:42 OF BREATH cephalexin monohydrate Allergy ANAPHYLAXIS Verified 04/18/16 00:37 [From Keflex] cimetidine [From Tagamet] Allergy SHORTNESS Verified 04/18/16 00:42 OF BREATH cimetidine HCl [From Tagamet] Allergy SHORTNESS Verified 04/18/16 00:42 OF BREATH codeine Allergy SHORTNESS Verified 04/18/16 00:42 OF BREATH diazepam [From Valium] Allergy SHORTNESS Verified 04/18/16 00:42 OF BREATH diphenhydramine HCl Allergy SHORTNESS Verified 04/18/16 00:42 [From Benadryl] OF BREATH famotidine [From Pepcid] Allergy SHORTNESS Verified 04/18/16 00:42 OF BREATH ibuprofen Allergy SHORTNESS Verified 04/18/16 00:42 OF BREATH levofloxacin [From Levaquin] Allergy SHORTNESS Verified 04/18/16 00:42 OF BREATH meperidine HCl [From Demerol] Allergy SHORTNESS Verified 04/18/16 00:42 OF BREATH moxifloxacin HCl Allergy SHORTNESS Verified 04/18/16 00:42 [From Avelox] OF BREATH Penicillins Allergy SHORTNESS Verified 04/18/16 00:42 OF BREATH phenobarbital Allergy SHORTNESS Verified 04/18/16 00:42 OF BREATH ranitidine HCl [From Zantac] Allergy SHORTNESS Verified 04/18/16 00:42 OF BREATH shellfish derived Allergy SHORTNESS Verified 04/18/16 01:02 OF BREATH sucralfate [From Carafate] Allergy SHORTNESS Verified 04/18/16 00:42 OF BREATH vancomycin Allergy SHORTNESS Verified 04/18/16 00:42 OF BREATH balloons Allergy SHORTNESS Uncoded 04/18/16 05:21 OF BREATH Estrada Allergy SHORTNESS Uncoded 04/18/16 05:20 OF BREATH Review of Systems ROS Statement: Except As Marked, All Systems Reviewed And Found Negative Constitutional: Positive for: Weakness, Weight loss. Negative for: Fever Respiratory: Negative for: Cough Neurological: Positive for: Dizziness Physical Exam - Reviewed Nursing Documentation Reviewed: Yes Vital Signs Reviewed: Yes - Physical Exam Appears: Positive for: Non-toxic, No Acute Distress Head Exam: Positive for: ATRAUMATIC, NORMAL INSPECTION, NORMOCEPHALIC Skin: Positive for: Pallor Eye Exam: Positive for: EOMI, PERRL ENT: Positive for: Normal ENT Inspection Cardiovascular/Chest: Positive for: Regular Rate, Rhythm Respiratory: Positive for: Normal Breath Sounds. Negative for: Rales, Rhonchi, Wheezing Gastrointestinal/Abdominal: Positive for: Soft. Negative for: Tenderness, Guarding Extremity: Positive for: Normal ROM Neurologic/Psych: Positive for: Alert, Oriented (x3), Other (Poor insight, flat affect, anxious) - Laboratory Results Result Diagrams: 12/06/16 13:58 12/06/16 13:58 - ECG ECG: Positive for: Interpreted By Me ECG Rhythm: Positive for: Normal QRS, Normal ST Segment. Negative for: ST/T Changes Rate: 74 O2 Sat by Pulse Oximetry: 99 (RA) Pulse Ox Interpretation: Normal Medical Decision Making Medical Decision Makin Plan: check blood work, have referral for crisis. 1738 case discussed with chemical tank worker Dionne. 1759 Per crisis, admit to [facility] Dr Pavon Per chemical tank worker Dionne, patient is concerned that she will not be given food she is happy with when admitted. Family member also concerned about abnormal outpatient lab values in outpatient setting. Explained to patient and family that I spoke to PMD, discussed importance of compliance with Rx medication as per PMD. Explained this facility offers extensive inpatient services, including medicine, nutrition, psychiatric. medically stable for [facility] admission, will likely require medicine consult on floor for ongoing medical issues. Disposition - Clinical Impression Clinical Impression: Agoraphobia with panic disorder, Failure to thrive in adult - Patient ED Disposition Is Patient to be Admitted: Yes Counseled Patient/Family Regarding: Studies Performed, Diagnosis - Disposition Disposition Time: 18:00 Condition: STABLE Additional Comments - Additional Comments Additional Comments: Scribe Attestation: Documented by Arnaldo Puente acting as a scribe for Odette Alex DO. Provider Scribe Attestation: All medical record entries made by the Scribe were at my direction and personally dictated by me. I have reviewed the chart and agree that the record accurately reflects my personal performance of the history, physical exam, medical decision making, and the department course for this patient. I have also personally directed, reviewed, and agree with the discharge instructions and disposition.
[2016-12-06 14:16] LABS: ALB/GLOB RATIO 1.2 (1.0-2.1); ALKALINE PHOSPHATASE 243 U/L (38-126); ALT/SGPT 31 U/L (9-52); AST/SGOT 36 U/L (14-36); BILIRUBIN,TOTAL 0.3 mg/dl (0.2-1.3); BLOOD UREA NITROGEN 12 mg/dl (7-17); CALCIUM 7.4 mg/dL (8.4-10.2); CARBON DIOXIDE 25 mmol/L (22-30); CHLORIDE 108 mmol/L (98-107); GFR AFRICAN-AMERICAN > 60; GLUCOSE,RANDOM 102 mg/dL (65-105); LIPASE 40 U/L (23-300); POTASSIUM 4.5 MMOL/L (3.6-5.0); SODIUM 144 mmol/l (132-148); TOTAL PROTEIN 7.1 G/DL (6.3-8.2)
[2016-12-06 19:41] LABS: RBC URINE < 1 /hpf (0-3); URINE BILIRUBIN NEGATIVE (NEGATIVE); URINE BLOOD SMALL (NEGATIVE); URINE COLOR STRAW (YELLOW); URINE GLUCOSE (UA) NEG (Normal); URINE KETONE NEGATIVE (NEGATIVE); URINE LEUKOCYTE ESTERASE NEG Leu/uL (Negative); URINE PROTEIN NEGATIVE (NEGATIVE); URINE UROBILINOGEN 0.2-1.0 mg/dL (0.2-1.0)
[2016-12-06 20:14] VITALS: O2SAT 98
--- NOTE | 2016-12-07 11:43 | CARD ---
APPROVED REPORT EKG Measurement Heart [id number] <Conclusion> Normal sinus rhythm Possible Left atrial enlargement Borderline ECG
--- NOTE | 2016-12-07 12:08 | PCM.PSYCH ---
Initial Psychiatric Evaluation - Initial Psychiatric Evaluation Type of Admission: Voluntary Legal Status: Capacity Chief Complaint (in patient's own words): "I need medical help, not psychiatric help." Patient's Reaction to Hospitalization: HPI: 61 year old female with multiple medical problems for which she is not on any medication, including many food and drug allergies, poor po intake (states she can only eat peas and bananas at home, cannot take ensure), COPD, DM, DVT, esophageal varices, GI ulcer, hiatal hernia, referred by Dr. Veronica, and Dr. Carlton reporting a history of somatic symptoms and illnesses. Patient reports that she feels very upset about the amount of medical problems she has. She was defensive on interview, didn't want to be labeled as "crazy" and stated that she does not to be stigmatized or her medical issues ignored because she also has psychiatric issues. She reported feeling stressed, but denied excessive feelings of depression. Her main complaint was anxiety, intermittent panic attacks and agoraphobia. She reports that she is afraid to leave the house because of the amount of things she is allergic too and exposure to various toxins. She left her house last 7 months ago to go to the hospital and before that, she didn't leave for 10 year, due to various preoccupations. Broker informed the patient that she would benefit from psychiatric medications and therapy, but patient stated that she is not willing at this time. She is very concerned about taking any medications and refuses to take any medications offered by the technical document writer. She denies AH/VH/SI/HI. She is taken care of by her son. 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 Veronica, and Dr. Carlton reporting a history of somatic symptoms and illnesses, Patient reported having allergic reaction to food, and only able to eat organic peas, bananas and baby food. Pt multiple addictional allergies to chemicals and additional medical problems as COPD, DM, DVT, esophageal varicies , GI Ulcer, Hiatal hernia, Ovarian cyst, hysterectomy,. Pt have numerous somatic disorder. Pt. was referred for psychiatric admission. Pt. denied suicidal or homocidal ideations, Pt. admitted having anxiety due to her medical problems. Pt denied that she need to be admitted in a psychiatric unit. Pt. stated that she is upset that she need to be admitted at the [facility]. [facility]. Alex met twice with patient explaining the necessity for the admission at [facility]. Pt. is requesting to have a number of consults from different medical specialists, including a doctor who specialized in environmental poisioning. Pt. is requesting to have IV to help her with her nutritional needs. Pt. don't want to be seen as a psych patient. Pt have concerned that she is not going to be fed what she need to eat. Pt. stated that she was told in the past that she could not have the food that she can eat while she is admitted at the unit. Pt. wanted ER doctor to confirm that she would be fed the banana and peas that she can eat. PMD: Dr. Carlton PPHx: H/o one previous psychiatric admission >20 years ago for depression, no h/ o suicide attempts, no current outpatient tx or psychiatric medications PMH: many food and drug allergies, poor po intake (states she can only eat peas and bananas at home, cannot take ensure), COPD, DM, DVT, esophageal varices, GI ulcer, hiatal hernia PSH: ovarian cyst, hysterectomy, SBO, LOAx9? endoscopy with gastric esophageal cauterization FH: Borderline personality disorder and unspecified somatic disorder- Mother SH: Denies tobacco, ETOH, IVDU; Lives with son, has 2 children and is estranged from her daughter MEDS: as below and reviewed ALLERGIES: NKDA MSE: Alert + Oriented x 3, cachectic, good eye contact, cooperative with interview, mood "anxious" affect- full range/broad, thought content- linear/ coherent, though process- somatic preoccupation vs. delusions about having allergies to numerous things, NO paranoia/hallucinations. NO SI/HI. Insight/ judgment- poor Current Medications: Active Medications Generic Name Dose Route Start Last Admin Trade Name Freq PRN Reason Stop Dose Admin Acetaminophen 650 mg 12/06/16 22:08 Tylenol 325mg Tab PO Q4 PRN Pain, moderate (4-7) Past Psychiatric History - Past Psychiatric History Previous Treatment History: Inpatient Pertinent Medical Hx (Current Medical&Sleep Prob, Allergies): Allergies Allergy/AdvReac Type Severity Reaction Status Date / Time aminophylline Allergy SHORTNESS Verified 04/18/16 00:42 OF BREATH aspirin Allergy SHORTNESS Verified 04/18/16 00:42 OF BREATH cephalexin monohydrate Allergy ANAPHYLAXIS Verified 04/18/16 00:37 [From Keflex] cimetidine [From Tagamet] Allergy SHORTNESS Verified 04/18/16 00:42 OF BREATH cimetidine HCl [From Tagamet] Allergy SHORTNESS Verified 04/18/16 00:42 OF BREATH codeine Allergy SHORTNESS Verified 04/18/16 00:42 OF BREATH diazepam [From Valium] Allergy SHORTNESS Verified 04/18/16 00:42 OF BREATH diphenhydramine HCl Allergy SHORTNESS Verified 04/18/16 00:42 [From Benadryl] OF BREATH famotidine [From Pepcid] Allergy SHORTNESS Verified 04/18/16 00:42 OF BREATH ibuprofen Allergy SHORTNESS Verified 04/18/16 00:42 OF BREATH levofloxacin [From Levaquin] Allergy SHORTNESS Verified 04/18/16 00:42 OF BREATH meperidine HCl [From Demerol] Allergy SHORTNESS Verified 04/18/16 00:42 OF BREATH moxifloxacin HCl Allergy SHORTNESS Verified 04/18/16 00:42 [From Avelox] OF BREATH Penicillins Allergy SHORTNESS Verified 04/18/16 00:42 OF BREATH phenobarbital Allergy SHORTNESS Verified 04/18/16 00:42 OF BREATH ranitidine HCl [From Zantac] Allergy SHORTNESS Verified 04/18/16 00:42 OF BREATH shellfish derived Allergy SHORTNESS Verified 04/18/16 01:02 OF BREATH sucralfate [From Carafate] Allergy SHORTNESS Verified 04/18/16 00:42 OF BREATH vancomycin Allergy SHORTNESS Verified 04/18/16 00:42 OF BREATH balloons Allergy SHORTNESS Uncoded 04/18/16 05:21 OF BREATH Estrada Allergy SHORTNESS Uncoded 04/18/16 05:20 OF BREATH Docusate [Colace] 100 mg PO BID cap 10/21/16 Acetaminophen [Tylenol 325mg tab] 650 mg PO Q4H PRN 12/06/16 Acetaminophen [Tylenol 325mg tab] 650 mg PO Q4H PRN 12/06/16 Insulin Glulisine [Apidra] 1 - 7 unit SC BID 12/06/16 Review of Systems - Review of Systems All systems: reviewed and no additional remarkable complaints except (Various somatic complaints and preoccupation with her medical health) Mental Status Examination - Personal Presentation Personal Presentation: Looks older than stated age Additional comments: Cachetic - Affect Affect: Constricted - Motor Activity Motor Activity: Calm - Reliability in Providing Information Reliability in Providing Information: Good - Speech Speech: Organized - Mood Mood: Anxious - Formal Thought Process Additional comments: Somatic preoccupations vs. delusions about having various allergies - Obsessions/Compulsions Obsessions: No Compulsions: No - Cognitive Functions Orientation: Person, Place, Situation, Time Sensorium: Alert Attention/Concentration: Attentive Estimate of Intelligence: Average Judgement: Imparied, as evidence by: Poor judgement, Imparied, as evidence by: Lack of insight into illness Memory: Recent intact, as evidence by: Ability to recall events of the day, Remote intact, as evidenced by: Abilit to recall sig. life events, Remote intact , as evidenced by: Ability to recall historical events - Risk Risk: Diminished functioning - Strength & Assets Inventory Strength & Assets Inventory: Family support DSM 5 DX - DSM 5 DSM 5 Diagnosis: Agoraphobia with Panic Disorder, Somatic Symptom Disorder - Recommended/Plan of Treatment Treatment Recommendations and Plan of Treatment: Impression: 61 year old female with multiple medical problems for which she is not on any medication, including many food and drug allergies, poor po intake ( states she can only eat peas and bananas at home, cannot take ensure), COPD, DM , DVT, esophageal varices, GI ulcer, hiatal hernia, referred for psychiatric treatment by PMD and psychiatrist. Patient presents with various complaints of anxiety, inability to leave her home, various preoccupations about her health including various allergies, and somatic preoccupations. 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 She has diminished ability to care for herself due to her somatic preoccupations and is not agreeable to any psychiatric treatments at this time. Due to patient's lack of insight, inability to care for herself and significantly diminished functioning, patient is an acute danger to herself and would benefit from screening for involuntary admission. Plan: -Admit to [facility] -Patient not agreeable to psychiatric medications or treatment at this time, she would benefit from screening for involuntary commitment -Medicine consult -Physical therapy evaluation -Individual and group therapy Discharge Plan and Discharge Criteria: Discharge when psychiatrically stable - Smoking Cessation Smoking Cessation Initiated: No Reason for not providing: Not indicated
[2016-12-07] MEDS ORDERED: Alum-Mag Hydrox-Simethicone Susp (30 mL) PO PRN (12:16)
[2016-12-07] MEDS ORDERED: DiphenhydrAMINE 50 mg/ml Inj IM PRN (12:16)
[2016-12-07] MEDS ORDERED: Magnesium Hydroxide Susp 30 ml UD PO PRN (12:16)
--- NOTE | 2016-12-07 13:52 | RAD ---
HISTORY: The only clinical history provided is "rule out infiltrate". Portable upright study 19:27. COMPARISON: 10/18/2016. FINDINGS: LUNGS: No active pulmonary disease. PLEURA: No significant pleural effusion identified, no pneumothorax apparent. CARDIOVASCULAR: Normal. OSSEOUS STRUCTURES: No significant abnormalities. VISUALIZED UPPER ABDOMEN: Normal. OTHER FINDINGS: None. IMPRESSION: No active disease. No significant interval change compared to the prior examination(s).
[2016-12-07] MEDS: Insulin Regular 100 units/ml SC SCH ×2 (17:18→22:26)
--- NOTE | 2016-12-07 19:25 | CP.PCM.CON ---
History of Present Illness - History of Present Illness History of Present Illness: 61 yo female with history of COPD, DM2, DVT, Esophageal Varices and many food and drug allergies causing her to have very poor oral intake and only taking peas and bananas admitted to psyche unit because of intermittent panic attacks and agoraphobia. Review of Systems - Review of Systems All systems: reviewed and no additional remarkable complaints except (aside from those mentioned above, 12 point system review were negative by me) Past Patient History - Past Medical History & Family History Past Medical History?: Yes - Past Social History Smoking Status: Former Smoker Chewing Tobacco Use: No Cigar Use: No Alcohol: None Drugs: Denies - CARDIAC Hx Cardiac Disorders: Yes Other/Comment: in 4N for palpitations, chest pain - PULMONARY Hx Respiratory Disorders: Yes Hx Asthma: Yes Hx Chronic Obstructive Pulmonary Disease (COPD): Yes Hx Emphysema: Yes Hx Pneumonia: Yes - NEUROLOGICAL Hx Neurological Disorder: No - HEENT Hx HEENT Problems: No - RENAL Hx Chronic Kidney Disease: No - ENDOCRINE/METABOLIC Hx Endocrine Disorders: Yes (Controlled DM) - HEMATOLOGICAL/ONCOLOGICAL Hx Blood Disorders: Yes Hx Anemia: Yes (per pt's report) Hx Human Immunodeficiency Virus (HIV): No - INTEGUMENTARY Hx Dermatological Problems: No - MUSCULOSKELETAL/RHEUMATOLOGICAL Hx Musculoskeletal Disorders: Yes Hx Falls: Yes Hx Herniated Disk: Yes - GASTROINTESTINAL Hx Gastrointestinal Disorders: Yes Hx Bowel Surgery: Yes Hx Ulcer: Yes Other/Comment: Hx Esophagitis, esophageal strictures, Hx adhesions - GENITOURINARY/GYNECOLOGICAL Hx Genitourinary Disorders: No - PSYCHIATRIC Hx Substance Use: No - SURGICAL HISTORY Hx Surgeries: Yes Hx Hysterectomy: Yes Other/Comment: Ovarian cysts that ruptured x 2. Lysis of adhesions. Abdominal sx for bowel obstruction x 2 - ANESTHESIA Hx Anesthesia: Yes Hx Anesthesia Reactions: No Hx Malignant Hyperthermia: No Meds Allergies/Adverse Reactions: Allergies Allergy/AdvReac Type Severity Reaction Status Date / Time aminophylline Allergy SHORTNESS Verified 04/18/16 00:42 OF BREATH aspirin Allergy SHORTNESS Verified 04/18/16 00:42 OF BREATH cephalexin monohydrate Allergy ANAPHYLAXIS Verified 04/18/16 00:37 [From Keflex] cimetidine [From Tagamet] Allergy SHORTNESS Verified 04/18/16 00:42 OF BREATH cimetidine HCl [From Tagamet] Allergy SHORTNESS Verified 04/18/16 00:42 OF BREATH codeine Allergy SHORTNESS Verified 04/18/16 00:42 OF BREATH diazepam [From Valium] Allergy SHORTNESS Verified 04/18/16 00:42 OF BREATH diphenhydramine HCl Allergy SHORTNESS Verified 04/18/16 00:42 [From Benadryl] OF BREATH famotidine [From Pepcid] Allergy SHORTNESS Verified 04/18/16 00:42 OF BREATH ibuprofen Allergy SHORTNESS Verified 04/18/16 00:42 OF BREATH levofloxacin [From Levaquin] Allergy SHORTNESS Verified 04/18/16 00:42 OF BREATH meperidine HCl [From Demerol] Allergy SHORTNESS Verified 04/18/16 00:42 OF BREATH moxifloxacin HCl Allergy SHORTNESS Verified 04/18/16 00:42 [From Avelox] OF BREATH Penicillins Allergy SHORTNESS Verified 04/18/16 00:42 OF BREATH phenobarbital Allergy SHORTNESS Verified 04/18/16 00:42 OF BREATH ranitidine HCl [From Zantac] Allergy SHORTNESS Verified 04/18/16 00:42 OF BREATH shellfish derived Allergy SHORTNESS Verified 04/18/16 01:02 OF BREATH sucralfate [From Carafate] Allergy SHORTNESS Verified 04/18/16 00:42 OF BREATH vancomycin Allergy SHORTNESS Verified 04/18/16 00:42 OF BREATH balloons Allergy SHORTNESS Uncoded 04/18/16 05:21 OF BREATH Estrada Allergy SHORTNESS Uncoded 04/18/16 05:20 OF BREATH - Medications Medications: Current Medications Acetaminophen (Tylenol 325mg Tab) 650 mg PO Q4 PRN PRN Reason: Pain, moderate (4-7) Al Hydrox/Mg Hydrox/Simethicone (Maalox Plus 30 Ml) 30 ml PO Q4 PRN PRN Reason: Dyspepsia Diphenhydramine HCl (Benadryl) 50 mg IM Q6 PRN PRN Reason: Extrapyramidal S/S Unable PO Diphenhydramine HCl (Benadryl) 50 mg PO Q6 PRN PRN Reason: Extrapyramidal Symptoms Docusate Sodium (Colace) 100 mg PO BID [facility] Last Admin: 12/07/16 17:21 Dose: 100 mg Insulin Human Regular (Humulin R) 0 units SC ACHS [facility] PRN Reason: Protocol Last Admin: 12/07/16 17:18 Dose: Not Given Lorazepam (Ativan) 0.5 mg IM Q8 PRN PRN Reason: Agitation Lorazepam (Ativan) 0.5 mg PO Q8 PRN PRN Reason: Agitation Magnesium Hydroxide (Milk Of Magnesia) 30 ml PO HS PRN PRN Reason: Constipation Physical Exam - Constitutional Appears: No Acute Distress, Cachectic - Head Exam Head Exam: ATRAUMATIC - Eye Exam Eye Exam: absent: Scleral icterus - ENT Exam ENT Exam: Mucous Membranes Moist - Neck Exam Neck exam: Negative for: Meningismus - Respiratory Exam Respiratory Exam: absent: Rhonchi, Wheezes, Respiratory Distress - Cardiovascular Exam Cardiovascular Exam: REGULAR RHYTHM, +S1, +S2 - GI/Abdominal Exam GI & Abdominal Exam: Soft. absent: Tenderness - Rectal Exam Rectal Exam: Deferred - Neurological Exam Neurological exam: Alert, Oriented x3 - Psychiatric Exam Psychiatric exam: Normal Affect - Skin Skin Exam: Dry, Intact Results - Vital Signs Recent Vital Signs: Last Vital Signs Temp 98.4 F 12/07/16 15:48 Pulse 78 12/07/16 15:48 Resp 20 12/07/16 15:48 BP 125/54 L 12/07/16 15:48 Pulse Ox 98 12/06/16 20:13 - Labs Result Diagrams: 12/06/16 13:58 12/06/16 13:58 Labs: Laboratory Results - last 24 hr 12/06/16 12/06/16 12/07/16 19:25 21:40 06:22 POC Glucose (mg/dL) 98 101 Urine Color Straw Urine Clarity Clear Urine pH 8.0 Ur Specific Ponce 1.009 Urine Protein Negative Urine Glucose (UA) Neg Urine Ketones Negative Urine Blood Small Urine Nitrate Negative Urine Bilirubin Negative Urine Urobilinogen 0.2-1.0 Ur Leukocyte Esterase Neg Urine RBC (Auto) < 1 12/07/16 12/07/16 11:03 15:18 POC Glucose (mg/dL) 88 104 Urine Color Urine Clarity Urine pH Ur Specific Ponce Urine Protein Urine Glucose (UA) Urine Ketones Urine Blood Urine Nitrate Urine Bilirubin Urine Urobilinogen Ur Leukocyte Esterase Urine RBC (Auto) Assessment & Plan (1) Agoraphobia with panic disorder Status: Acute Comment: psyche is managing
[2016-12-08 06:13] VITALS: RESP 18
[2016-12-08] MEDS: Insulin Regular 100 units/ml SC SCH ×4 (08:52→21:24)
--- NOTE | 2016-12-08 15:11 | PCM.PYCHPN ---
Psychiatric Progress Note - Psychiatric Progress Note Patient seen today, length of contact: Patient evaluated, case discussed with team, chart reviewed Patient Chief Complaint: "I need medical help, not psychiatric help." Problems Identified/Issues Discussed: [place] [facility] [place]. She continues to be focused on her somatic preoccupations and demands to be seen by various medical technician assistant, despite no acute medical indication for that. She has poor insight into her somatic preoccupations vs. delusional fixation on medical issues. She is irrational and unable to engage in conversation that is not about her somatic issues. Medication Change: No (Patient refuses psychotropic medications) Medical Record Reviewed: No Mental Status Examination - Cognitive Function Orientation: Person, Place, Situation, Time Memory: Intact Attention: WNL Concentration: WNL Association: WNL Fund of Knowledge: [facility] Decription of patient's judgement and insights: Poor insight/judgment - Mood Mood: Anxious - Affect Affect: Constricted - Speech Speech: Appropriate - Formal Thought Process Formal Thought Process: Delusions (Somatic preoccupations vs. delusions) - Suicidal Ideation Suicidal Ideation: No - Homicidal Ideation Homicidal Ideation: No Goal/Treatment Plan - Goal/Treatment Plan Need for Continued Stay: Severe functional impairment Progress Toward Problem(s) and Goals/Treatment Plan: Impression: 61 year old female with multiple medical problems for which she is not on any medication, including many food and drug allergies, poor po intake ( states she can only eat peas and bananas at home, cannot take ensure), COPD, DM , DVT, esophageal varices, GI ulcer, hiatal hernia, referred for psychiatric treatment by PMD and psychiatrist. Patient presents with various complaints of anxiety, inability to leave her home, various preoccupations about her health including various allergies, and somatic preoccupations. 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 Plan: -Patient not agreeable to psychiatric medications or treatment at this time, likely discharge tomorrow as she signed a 48 hr letter requesting discharge and was not admitted for involuntary commitment -Medicine consult- no acute medical issues or consultations needed -Physical therapy evaluation -Individual and group therapy Estimated Date of D/C: 12/09/16
[2016-12-08 15:48] VITALS: TEMP 97.7
[2016-12-09 06:07] VITALS: BP 106/65; PULSE 72
[2016-12-09] MEDS: Insulin Regular 100 units/ml SC SCH ×2 (09:22→12:21)
--- NOTE | 2016-12-09 11:45 | PCM.PYCHDC ---
Mental Status Examination - Mental Status Examination Orientation: Person, Place, Situation, Time Memory: Intact Mood: Anxious Speech: Appropriate Attention: WNL Concentration: WNL Association: WNL Fund of Knowledge: WNL Formal Thought Process: Delusions (somatic delusions), Paranoia Description of patient's judgement and insight: poor insight/questionable judgment Psychotic Thoughts and Behaviors: denies any a/v hallucinations. Suicidal Ideation: No Current Homicidal Ideation?: No Plan: denies any suicidal or homicidal thoughts. Discharge Summary - Discharge Note Reason for Hospitalization: sent from sub-acute rehab, concerns with her anxiety/somatic complaints. see dr. lopez's admission note Psychiatric History (includes Medical, Family, Personal Hx): denies having any prior psychiatric history/treatment Laboratory Data: Abnormal Lab Results 12/08/16 12/08/16 12/09/16 15:35 20:19 05:57 POC Glucose (mg/dL) 104 113 H 93 Consultations:: List each consultation separately and include: 1. Reason for request. 2. Findings. 3. Follow-up Consultations: pt seen by adjunct faculty for medical terminology Summary of Hospital Course include:: 1. Description of specific treatment plan utilized for patients during their course of treatmen. 2. Summarize the time- course for resolution of acute symptoms and/or regressed behaviors. 3. Describe issues identified and worked on during hospitalization. 4. Describe medication utilized. 5. Describe medical problems identified and treated. 6. Reassessment of suicide risk Summary of Hospital Course: pt admitted to [facility] and placed on routine safety protocols. pt treated by dr. lopez, who recommended medications to help with the pt's symptoms. pt denied having a mental illness. she signed a 48 hour notice. pt and her son met extensively with dr. lopez, the unit social work nurse as well as the Director of behavioral health. The referring facility refused to take the patient back. the team offered to keep the patient longer in the hospital and to attempt to treat her symptoms, however the patient refused to retract her 48 hour notice and demanded to leave the hospital. the risks of discharge including lack of aftercare, possible medical problems from her untreated symptoms were explained to the pt as well as the benefits of staying in the hospital. she signed out of the hospital against medical advice. she was denying suicidal or homicidal thoughts at the time of discharge. - Final Diagnosis (DSM 5) Condition upon Discharge: STABLE DSM 5: Agoraphobia with Panic Disorder, Somatic Symptom Disorder Disposition: AGAINST MEDICAL ADVICE Follow-up Treatment Plan: call 911 if any suicidal or homicidal thoughts follow up with your outpatient medical providers as per your routine do not use alcohol, tobacco or other illicit substances - Smoking Cessation Smoking Cessation Medication prescribed: No Reason for not providing: declines - Antipsychotic Medications Pt discharged on 2 or more routine antipsychotic medications: No
== END 2016-12-09 13:45 | disposition left against medical advice (07) | DRG 427 ==
LOC: H.ER 13:19 → H.ERHOLD 19:06 → H.STEP 20:38
PROVIDERS: ADMIT Psychiatry & Neurology Psychiatry; ATTEND Psychiatry & Neurology Psychiatry
PROC: GZHZZZZ Group Psychotherapy (ICD-10-PCS; principal; 2016-12-06)
PROC: GZ58ZZZ Individual Psychotherapy, Cognitive-Behavioral (ICD-10-PCS; 2016-12-06)
DX: F40.01 Agoraphobia with panic disorder (principal); D51.0 Vitamin B12 deficiency anemia due to intrinsic factor deficiency; J44.9 Chronic obstructive pulmonary disease, unspecified; F45.8 Other somatoform disorders; J45.909 Unspecified asthma, uncomplicated; E11.9 Type 2 diabetes mellitus without complications; R62.7 Adult failure to thrive; Z68.1 Body mass index [BMI] 19.9 or less, adult; E78.5 Hyperlipidemia, unspecified; K44.9 Diaphragmatic hernia without obstruction or gangrene; Z88.6 Allergy status to analgesic agent; Z88.3 Allergy status to other anti-infective agents; Z91.018 Allergy to other foods; Z87.11 Personal history of peptic ulcer disease; Z87.01 Personal history of pneumonia (recurrent); Z86.718 Personal history of other venous thrombosis and embolism; Z90.710 Acquired absence of both cervix and uterus; Z87.891 Personal history of nicotine dependence